=== PATIENT | male | born 1965 | race Caucasian/White ===

== ENCOUNTER 2018-04-18 21:31 | Emergency (ER) | payer SELFPAY ==
[~2018-04-18] VITALS: Ht 167.6 cm; Wt 64.0 kg
[2018-04-18 21:44] VITALS: BP 154/84
== END 2018-04-19 00:55 | disposition left against medical advice (07) ==
LOC: ER 21:31
DX: Z53.21 Procedure and treatment not carried out due to patient leaving prior to being seen by health care provider (principal)

== ENCOUNTER 2018-09-06 14:36 | Emergency (ER) | payer SELFPAY ==
[~2018-09-06] VITALS: Ht 172.7 cm; Wt 68.0 kg
[2018-09-06 16:27] LABS: BASOPHILS % 2.2 % (0.0-2.0); CHLORIDE 107 mEq/L (98-107); EOSINOPHILS % 1.7 % (0.0-5.0); HEMATOCRIT. 34.4 % (42.0-52.0); HEMOGLOBIN. 11.1 g/dL (14.0-18.0); LYMPHOCYTES % 29.7 % (20.0-50.0); MEAN PLATELET VOLUME 7.4 fl (7.4-10.4); MONOCYTES % 5.8 % (2.0-8.0); NEUTROPHILS % 60.6 % (40.0-76.0); PLATELET 200 x1000/uL (130-400); RED BLOOD CELL COUNT 3.95 mill/uL (4.7-6.1); RED CELL DISTRIBUTION WIDTH 20.8 % (11.6-14.6)
[2018-09-06 16:46] LABS: ETHANOL BLOOD 459 mg/dL
[2018-09-06 23:33] VITALS: BP 103/76
== END 2018-09-06 23:50 | disposition home or self-care (01) ==
LOC: ER 14:41
DX: F10.229 Alcohol dependence with intoxication, unspecified (principal); Y90.8 Blood alcohol level of 240 mg/100 ml or more; D64.9 Anemia, unspecified
CPT/HCPCS: 36415; 70450; 80053; 85025; 99284; G0482; Z7610

== ENCOUNTER 2018-10-11 12:10 | Emergency (ER) | payer SELFPAY ==
[~2018-10-11] VITALS: Ht 175.3 cm; Wt 80.0 kg
[2018-10-11] MEDS ORDERED: SODIUM CHLORIDE 0.9% 1,000 ML IV ONE (13:00)
[2018-10-11 13:12] LABS: BASOPHILS % 3.1 % (0.0-2.0); EOSINOPHILS % 2.2 % (0.0-5.0); HEMATOCRIT. 33.3 % (42.0-52.0); HEMOGLOBIN. 10.8 g/dL (14.0-18.0); LYMPHOCYTES % 36.8 % (20.0-50.0); MEAN CORPUSCULAR HEMOGLOBIN 28.7 pg (28.0-32.0); MEAN CORPUSCULAR VOLUME 88.9 fL (80.0-94.0); MEAN PLATELET VOLUME 7.4 fl (7.4-10.4); MONOCYTES % 8.9 % (2.0-8.0); PLATELET 192 x1000/uL (130-400); RED BLOOD CELL COUNT 3.75 mill/uL (4.7-6.1); RED CELL DISTRIBUTION WIDTH 18.9 % (11.6-14.6)
[2018-10-11 13:16] LABS: CHLORIDE 104 mEq/L (98-107)
[2018-10-11] MEDS ORDERED: POTASSIUM CHLORIDE 20MEQ TABLET SR PO ONE (16:00)
[2018-10-11] MEDS ORDERED: ACETAMINOPHEN 325MG TABLET PO PRN (21:45)
[2018-10-13] MEDS ORDERED: LORAZEPAM 1MG TABLET PO ONE (01:15)
[2018-10-13 06:52] VITALS: BP 118/69
== END 2018-10-13 06:58 | disposition home or self-care (01) ==
LOC: ER 12:10
DX: F10.229 Alcohol dependence with intoxication, unspecified (principal); R55 Syncope and collapse; I10 Essential (primary) hypertension; Z59.0 Homelessness; Y90.9 Presence of alcohol in blood, level not specified
CPT/HCPCS: 36415; 70450; 71045; 80048; 83880; 84484; 85025; 93005; 99284; J7030; Z7610